=== PATIENT | female | born 1970 | race Caucasian/White ===

== ENCOUNTER 2025-03-08 06:26 | Day surgery (SDC) | payer OTHER, MEDICAID, SELFPAY | END 2025-03-08 14:48 | disposition home or self-care (01) | LOC: GI 06:26 | PROVIDERS: ATTENDING PHYSICIAN Student in an Organized Health Care Education/Training Program | DX: K31.89 Other diseases of stomach and duodenum (principal); R11.2 Nausea with vomiting, unspecified; R11.14 Bilious vomiting; R63.4 Abnormal weight loss | CPT/HCPCS: 43239; 88305; 88342 ==

== ENCOUNTER → 2025-07-29 12:38 | Outpatient (REF) | payer OTHER, MEDICAID, SELFPAY | LOC: WDC 12:38 | PROVIDERS: PRIMARYCARE PHYSICIAN Nurse Practitioner Family | DX: Z12.31 Encounter for screening mammogram for malignant neoplasm of breast (principal); Z12.39 Encounter for other screening for malignant neoplasm of breast | CPT/HCPCS: 77063; 77067 ==

== ENCOUNTER → 2025-09-14 13:50 | Outpatient (REF) | payer OTHER, SELFPAY | LOC: RAD 13:50 | PROVIDERS: ATTENDING PHYSICIAN Physician Assistant; FAMILY PHYSICIAN Nurse Practitioner Family | DX: R05.1 Acute cough (principal) | CPT/HCPCS: 71046 ==